=== PATIENT | male | born 1975 | race Caucasian/White ===

== ENCOUNTER 2019-05-07 00:33 | Emergency (ER) | payer BC, OTHER ==
--- NOTE | 2019-05-07 01:16 | RADIOLOGY REPORT (SQ) ---
CLINICAL HISTORY: fell going up stairs 05/05 COMPARISON: None. TECHNIQUE: XR RIBS UNILATERAL WITH CHEST 05/07/2019 12:00 AM CDT FINDINGS: Cardiac silhouette is normal in size. Lungs are clear without consolidation, atelectasis, mass or edema. There is no pleural effusion. There is no pneumothorax. There are no acute osseous findings. IMPRESSION: Clear lungs.
[2019-05-07] MEDS ORDERED: PROMETHAZINE HCL 25 MG TABLET PO ONE (01:53)
[2019-05-07] MEDS ORDERED: OXYCODONE-ACETAMINOPHEN 5-325 MG TABLET PO ONE (01:53)
--- NOTE | 2019-05-07 01:54 | ER Document Report ---
HPI - HPI Time Seen by Provider: 05/07/19 01:22 Pain Level: 5 Context: Patient is a 43-year-old male that comes to the emergency department for chief complaint of injury to the right ribs. He states he tripped on a stair and landed on the step, the stair hit him in the right ribs over the side. He denies a bruise to the area. He states last night he was okay but now his pain has progressively worsened throughout the day. He denies difficulty breathing, dizziness, vomiting, abdominal pain, flank pain, numbness, or any other complaints. He denies any daily medications or diagnosed medical history. He denies hitting his body on any other location. Past Medical History - General Information source: Patient - Social History Smoking Status: Former Smoker Chew tobacco use (# tins/day): No Frequency of alcohol use: Rare Drug Abuse: None Lives with: Family Family History: None Patient has suicidal ideation: No Patient has homicidal ideation: No Renal/ Medical History: Denies: Hx Peritoneal Dialysis Surgical Hx: Negative - Immunizations Immunizations up to date: Yes Hx Diphtheria, Pertussis, Tetanus Vaccination: Yes Vertical Provider Document - CONSTITUTIONAL General Appearance: WD/WN, No Apparent Distress - INFECTION CONTROL TRAVEL OUTSIDE OF THE [place] IN LAST 30 DAYS: No - HEENT HEENT: Atraumatic, Normal ENT Exam, Normocephalic - NECK Neck: Normal Inspection - RESPIRATORY Respiratory: Breath Sounds Normal, No Respiratory Distress. negative: Chest Non-Tender - There is some tenderness with palpation over the right mid ribs between the midclavicular and midaxillary lines. There is no bruising, swelling, crepitus. No signs of trauma. Remaining chest exam unremarkable. - CARDIOVASCULAR Cardiovascular: Regular Rate, Regular Rhythm - GI/ABDOMEN Gastrointestinal: Abdomen Soft, Abdomen Non-Tender - BACK Back: Normal Inspection - MUSCULOSKELETAL/EXTREMETIES Musculoskeletal/Extremeties: MAEW, FROM, Non-Tender - NEURO Level of Consciousness: Awake, Alert, Appropriate Motor/Sensory: No Motor Deficit, No Sensory Deficit - DERM Integumentary: Warm, Dry, No Rash Course - Re-evaluation Re-evalutation: Patient tender over the right ribs on exam but there is no severe tenderness, he is nondistressed, vital signs unremarkable, lungs clear with good air movement, and the injury happened yesterday. There is also no sign of trauma on exam. X-rays negative for any acute findings. Discussed treatment options, expectations, follow-up, and return precautions. Patient states understanding and agreement with plan. - Vital Signs Vital signs: Temp Pulse Resp BP Pulse Ox 97.9 F 96 18 133/83 H 95 05/07/19 00:38 05/07/19 00:38 05/07/19 00:38 05/07/19 00:38 05/07/19 00:38 Discharge - Discharge Clinical Impression: Rib pain on right side Condition: Stable Disposition: HOME, SELF-CARE Additional Instructions: Your imaging does not show any concerning findings, your examination is reassuring. This appears to be a contusion and should resolve with time. Take the naproxen anti-inflammatory during the day, take the Flexeril muscle relaxer especially at night. Remember to take regular full breaths to avoid developing pneumonia. Follow-up primary care. Return if you worsen including difficulty breathing, fever, severe worsening pain, or any other concerning symptoms. Prescriptions: Cyclobenzaprine HCl [Flexeril 5 mg Tablet] 1 - 2 tab PO TID PRN #20 tablet PRN Reason: Naproxen 500 mg PO BID PRN #20 tablet PRN Reason: Forms: Return to Work Referrals: ELIZABETH MCKEE PA-C [Primary Care Provider] - Follow up as needed
[2019-05-07 02:40] VITALS: BP 125/75
== END 2019-05-07 02:39 | disposition home or self-care (01) ==
LOC: ER 00:33
DX: R07.81 Pleurodynia (principal); W10.9XXA Fall (on) (from) unspecified stairs and steps, initial encounter; Z87.891 Personal history of nicotine dependence
CPT/HCPCS: 99283